=== PATIENT | male | born 1960 | race Caucasian/White ===

== ENCOUNTER 2017-11-20 02:43 | Emergency (ER) | payer MEDICAID, OTHER ==
[~2017-11-20] VITALS: Ht 167.6 cm; Wt 74.8 kg
[2017-11-20 02:48] VITALS: BP_SYST 146
--- NOTE | 2017-11-20 02:50 | NUR ---
Placed in room 8 . Placed on well reactivator operator, blood pressure machine and pulse oximeter. To gown for exam. Side rails up. Report given to Gemma FARR.
--- NOTE | 2017-11-20 02:54 | NUR ---
Patient ambulatory to ER C/O chest pain to left side radiating to back for 2 days 07/26. Denies N/V, non-diaphoretic, AAOx4, unlabored breathing, no signs of acute distress.
--- NOTE | 2017-11-20 03:00 | NUR ---
# 20 gauge angiocath placed to right ac. Use of asceptic technique. Opsite placed over site. Blood return noted. Blood for lab drawn from site. Flushed with 10 cc of normal saline. No evidence of infiltration noted. Patient tolerated well.
--- NOTE | 2017-11-20 03:23 | NUR ---
ER MD Díaz at bedside evaluating the patient.
[2017-11-20 03:30] LABS: BASOPHILS # (AUTO) 0.1 K/uL (0.0-0.2); BASOPHILS % (AUTO) 0.9 % (0.0-2.0); EOSINOPHILS # (AUTO) 0.1 K/uL (0.0-0.4); HEMATOCRIT 50.7 % (36-54); HEMOGLOBIN 16.9 g/dL (14.0-18.0); LYMPHOCYTES # (AUTO) 2.1 K/uL (1.0-5.5); LYMPHOCYTES % (AUTO) 30.4 % (20.5-51.5); MEAN CORPUSCULAR HEMOGLOBIN 28 pg (27-31); MEAN CORPUSCULAR HGB CONC 33 % (32-36); MEAN CORPUSCULAR VOLUME 84 fL (79.0-98.0); MONOCYTES # (AUTO) 0.5 K/uL (0.0-1.0); MONOCYTES % (AUTO) 7.2 % (1.7-9.3); NEUTROPHILS # (AUTO) 4.1 K/uL (1.8-7.7); NEUTROPHILS % (AUTO) 60.5 % (40.0-70.0); PLATELET COUNT (AUTO) 213 K/uL (130-430); RED BLOOD CELL COUNT(AUTO) 6.06 MIL/uL (4.2-6.2); RED CELL DISTRIBUTION WIDTH 12.4 % (9.0-15.0); WHITE BLOOD COUNT (AUTO) 6.9 K/uL (4.8-10.8)
--- NOTE | 2017-11-20 03:31 | NUR ---
Radiology at bedside for chest Xray
[2017-11-20 03:35] LABS: CALCIUM 8.9 mg/dL (8.4-11.0); CREATININE 0.74 mg/dL (0.55-1.30); POTASSIUM 3.3 mmol/L (3.5-5.1)
[2017-11-20 03:39] LABS: PROTHROMBIN TIME 10.4 SECS (9.5-12.5)
[2017-11-20 03:41] LABS: ALBUMIN 4.5 g/dL (3.4-4.8); TOTAL BILIRUBIN 0.4 mg/dL (0.0-1.0)
[2017-11-20] MEDS ORDERED: LORazepam 2 MG/ML VIAL IVP ONE (04:00)
[2017-11-20 04:03] LABS: BILIRUBIN,URINE NEGATIVE (NEGATIVE); BLOOD, URINE NEGATIVE (NEGATIVE); CLARITY/URINE CLEAR (CLEAR); COLOR,URINE YELLOW (YELLOW); GLUCOSE,URINE NEGATIVE (NEGATIVE); KETONES,URINE NEGATIVE (NEGATIVE); LEUKOCYTE ESTERASE ,URINE NEGATIVE (NEGATIVE); NITRITE, URINE NEGATIVE (NEGATIVE); PROTEIN URINE NEGATIVE (NEGATIVE); UROBILINOGEN,URINE 0.2 (0.2-1.0)
[2017-11-20] MEDS ORDERED: LORazepam 2 MG/ML VIAL (FOR ER USE) ONE (04:05)
[2017-11-20 04:50] VITALS: BP_SYST 121
--- NOTE | 2017-11-20 04:50 | NUR ---
Patient given written and verbal discharge instructions and verbalizes understanding. ER MD Díaz discussed with patient the results and treatment provided. Patient in stable condition. ID arm band removed. IV catheter removed intact and dressing applied, no active bleeding. Rx of ativan given. Patient educated on pain management and to follow up with PMD. Pain Scale 0/10. Opportunity for questions provided and answered. Medication side effect fact sheet provided.
== END 2017-11-20 04:50 | disposition home or self-care (01) ==
LOC: SED 02:43
DX: R07.89 Other chest pain (principal); F41.9 Anxiety disorder, unspecified; I10 Essential (primary) hypertension
CPT/HCPCS: 36415; 71045; 80053; 81003; 82550; 83880; 84484; 85025; 85610; 85730; 93005; 96374; 99285; J2060